=== PATIENT | female | born 1985 | race Asian ===

== ENCOUNTER → 2018-02-03 14:57 | Outpatient (CLI) | payer OTHER, SELFPAY ==
--- NOTE | 2018-02-03 | DI.US.S_ITS ---
PROCEDURE: US OB <= 14 WEEKS FETUS INDICATIONS: BLEEDING OUTSIDE/PRIOR DATING DATA: Last menstrual period (LMP): 12/08/2017. LMP-based estimated date of delivery (ROMERO): 09/14/2018. First dating scan (date and location): 02/03/2018. Estimated date of delivery (ROMERO) from first dating scan: 09/28/2018 by sac size. TECHNIQUE: Real-time scanning was performed of the fetus and maternal pelvic organs, with image documentation. Endovaginal scanning was also performed to better visualize the fetus and maternal ovaries. COMPARISON: None. FINDINGS: Embryo: Early intrauterine gestational sac contains a yolk sac and shows a sac size of 1.3 cm corresponding to estimated gestational age of 6 weeks one day. No pole or cardiac activity seen. Measurement variability in dating: +/- 4 weeks by LMP, +/- 7 days by mean sac diameter (use before 6 weeks gestation if crown-rump length not able to be measured), +/- 5 days by crown-rump length (up to 8 weeks 6 days gestation), +/- 7 days by crown-rump length (up to 13 weeks 6 days gestation). Maternal organs: Ovaries appear normal, corpus luteum cyst on the left.. Limited images through the kidneys demonstrate no hydronephrosis. IMPRESSION: Early intrauterine gestation at 6 weeks one day by sac size, no visible pole, possible blighted ovum but too early for confirmation. Deciduous reaction appears intact. Advise correlation with clinical status and repeat imaging in 1-2 weeks as indicated. Dictated by: Yobani Bautista M.D. on 02/03/2018 at 16:18 Approved by: Yobani Bautista M.D. on 02/03/2018 at 16:23
== END ==
PROVIDERS: Family Provider Family Medicine; Visit Provider Family Medicine
DX: O20.9 Hemorrhage in early pregnancy, unspecified (principal); Z3A.01 Less than 8 weeks gestation of pregnancy
CPT/HCPCS: 76801; 76817

== ENCOUNTER → 2018-02-13 07:32 | Outpatient (CLI) | payer OTHER, SELFPAY ==
--- NOTE | 2018-02-13 | DI.US.S_ITS ---
PROCEDURE: US OB <= 14 WEEKS FETUS INDICATIONS: DATES OUTSIDE/PRIOR DATING DATA: Last menstrual period (LMP): 12/08/17. LMP-based estimated date of delivery (ROMERO): 09/14/18 . First dating scan (date and location): 02/03/18. Estimated date of delivery (ROMERO) from first dating scan: 10/02/18. TECHNIQUE: Real-time scanning was performed of the fetus and maternal pelvic organs, with image documentation. Endovaginal scanning was also performed to better visualize the fetus and maternal ovaries. COMPARISON: [facility], , OB <= 14 WEEKS FETUS, 02/03/2018, 15:39. FINDINGS: Embryo: Morrill-rump length measures 1.0 cm corresponding to 7 weeks 0 days. ROMERO is 10/02/18. Measurement variability in dating: +/- 4 weeks by LMP, +/- 7 days by mean sac diameter (use before 6 weeks gestation if crown-rump length not able to be measured), +/- 5 days by crown-rump length (up to 8 weeks 6 days gestation), +/- 7 days by crown-rump length (up to 13 weeks 6 days gestation). Maternal organs: Ovaries within normal limits, with left corpus luteal cyst measuring roughly 1.6 cm.. Limited images through the kidneys demonstrate no hydronephrosis. IMPRESSION: 7 week 0 day single living IUP. . Dictated by: Aidan LANZA Interpreted: Jazmin Gonzalez MD on 02/13/2018 at 9:58 Approved by: Jazmin Gonzalez M.D. on 02/13/2018 at 12:00
== END ==
PROVIDERS: Family Provider Family Medicine; PCP Family Medicine; Visit Provider Family Medicine
DX: Z34.91 Encounter for supervision of normal pregnancy, unspecified, first trimester (principal); Z3A.01 Less than 8 weeks gestation of pregnancy
CPT/HCPCS: 76801; 76817

== ENCOUNTER → 2018-05-16 10:03 | Outpatient (CLI) | payer OTHER, SELFPAY ==
--- NOTE | 2018-05-16 | DI.US.S_ITS ---
PROCEDURE: US OB >= 14 WEEKS FETUS INDICATIONS: 20 WEEK SURVEY OUTSIDE/PRIOR DATING DATA: Last menstrual period (LMP): 12/08/17. LMP-based estimated date of delivery (ROMERO): 09/14/18. First dating scan (date and location): 02/03/18. Estimated date of delivery (ROMERO) from first dating scan: 10/02/18. TECHNIQUE: Real-time scanning was performed of the fetus, with image documentation and biometric measurements. Endovaginal scanning: No COMPARISON: [facility], OB <= 14 WEEKS FETUS, 02/13/2018, 7:44. FINDINGS: General: A single living intrauterine gestation is present. Presentation: Vertex. Placenta: Placental position is anterior, without previa. Amniotic fluid index: 16.2 cm, normal range is 5-24 cm. heart rate: 149 beats per minute. Maternal cervical canal: 3.2 cm long. Normal lower limit is 2.5 cm. biometrics: Biparietal diameter: 21 weeks Head circumference: 20 weeks 5 days Abdominal circumference: 21 weeks Femur length: 21 weeks Estimated gestational age from initial scan: 20 weeks 1 day Composite gestational age from present scan: 20 weeks Estimated weight and percentile: 388 g; 87 percentile Measurement variability for biometric dating: +/- 7 days from 14 weeks to 15 weeks 6 days gestation, +/- 10 days from 16 weeks to 21 weeks 6 days gestation, +/- 2 weeks from 22 weeks to 27 weeks 6 days gestation, +/- 3 weeks for 28 weeks gestation or later. weight reference: 4500 g or EFW >90/95% is considered macrosomia or large for gestational age. EFW <10% is small for gestational age. EFW 5% or less is considered intra-uterine growth restriction. Anatomic survey: Neuro: Ventricles are non-dilated at less than 10 mm. Cisterna magna is normal at 3-11 mm. Cerebellum is normal in size and morphology. Nuchal skin fold: Normal at less than 6 mm between 14-21 weeks gestational age. Face: Nose and lips, facial profile are normal. Spine: No evidence for spina bifida. Heart: 4-chambered heart is present, with normal ventricular outflow tracts. Diaphragm: Diaphragm is intact. Stomach: Left-sided stomach is present. Kidneys: No hydronephrosis. Normal is less than 5 mm in 2nd trimester, less than 7 mm in 3rd trimester. Cord: 3-vessel cord has orthotopic insertion. Bladder: Normal in size. Extremities: All 4 extremities identified. IMPRESSION: Single living IUP redemonstrated and interval growth is normal. Normal anatomic survey. Dictated by: Aidan Mathews [facility] Interpreted: Jazmin Gonzalez MD on 05/16/2018 at 11:52 Approved by: Jazmin Gonzalez M.D. on 05/16/2018 at 15:26
== END ==
PROVIDERS: Family Provider Family Medicine; PCP Family Medicine; Visit Provider Family Medicine
DX: Z36.89 Encounter for other specified antenatal screening (principal); Z3A.20 20 weeks gestation of pregnancy
CPT/HCPCS: 76811

== ENCOUNTER → 2018-07-22 12:09 | Outpatient (CLI) | payer OTHER, SELFPAY ==
--- NOTE | 2018-07-22 | DI.US.S_ITS ---
PROCEDURE: US OB LIMITED INDICATIONS: SGA OUTSIDE/PRIOR DATING DATA: Last menstrual period (LMP): 12/08/17. LMP-based estimated date of delivery (ROMERO): 09/14/18. First dating scan (date and location): 02/03/18. Estimated date of delivery (ROMERO) from first dating scan: 10/02/18. TECHNIQUE: Real-time scanning was performed of the fetus, with image documentation and biometric measurements. Endovaginal scanning: No COMPARISON: None. FINDINGS: General: A single living intrauterine gestation is present. Presentation: Vertex. Placenta: Placental position is anterior, without previa. Amniotic fluid index: 21.3 cm, normal range is 5-24 cm. heart rate: 155 beats per minute. Maternal cervical canal: 3.5 cm long. Normal lower limit is 2.5 cm. biometrics: Biparietal diameter: 32 weeks 1 day Head circumference: 31 weeks 6 days Abdominal circumference: 31 weeks 2 days Femur length: 31 weeks 1 day Estimated gestational age from initial scan: 29 weeks 5 days Composite gestational age from present scan: 31 weeks 4 days Estimated weight and percentile: 1758 g; 91st percentile Measurement variability for biometric dating: +/- 7 days from 14 weeks to 15 weeks 6 days gestation, +/- 10 days from 16 weeks to 21 weeks 6 days gestation, +/- 2 weeks from 22 weeks to 27 weeks 6 days gestation, +/- 3 weeks for 28 weeks gestation or later. weight reference: 4500 g or EFW >90/95% is considered macrosomia or large for gestational age. EFW <10% is small for gestational age. EFW 5% or less is considered intra-uterine growth restriction. Other: Not applicable. IMPRESSION: 1. Single living IUP redemonstrated and interval growth upper limits of normal. Dictated by: Aidan Mathews [facility] Interpreted: Dagoberto Lopez MD on 07/22/2018 at 15:03 Approved by: Dagoberto Lopez M.D. on 07/22/2018 at 17:09
== END ==
PROVIDERS: PCP Family Medicine; Visit Provider Family Medicine
DX: O36.5930 Maternal care for other known or suspected poor fetal growth, third trimester, not applicable or unspecified (principal); Z3A.31 31 weeks gestation of pregnancy
CPT/HCPCS: 76815

== ENCOUNTER 2018-08-08 15:19 | Outpatient (CLI) | payer OTHER, SELFPAY | END 2018-08-08 16:49 | disposition home or self-care (01) | LOC: LABOR 16:49 → OB 08-11 16:32 | PROVIDERS: PCP Family Medicine; Visit Provider Family Medicine | DX: Z34.03 Encounter for supervision of normal first pregnancy, third trimester (principal); Z3A.32 32 weeks gestation of pregnancy | CPT/HCPCS: 59025; G0378; G0379 ==

== ENCOUNTER 2018-08-25 14:53 | Outpatient (CLI) | payer OTHER, SELFPAY | END 2018-08-25 15:38 | disposition home or self-care (01) | LOC: LABOR 15:48 → OB 08-27 12:54 | PROVIDERS: PCP Family Medicine; Visit Provider Family Medicine | DX: O36.8130 Decreased fetal movements, third trimester, not applicable or unspecified (principal); Z3A.34 34 weeks gestation of pregnancy | CPT/HCPCS: 59025; G0378; G0379 ==

== ENCOUNTER → 2018-09-02 16:26 | Outpatient (REF) | payer OTHER, SELFPAY | LOC: LAB 16:26 | PROVIDERS: PCP Family Medicine; Visit Provider Family Medicine | DX: Z34.03 Encounter for supervision of normal first pregnancy, third trimester (principal) | CPT/HCPCS: 87081 ==

== ENCOUNTER → 2018-09-10 12:18 | Outpatient (CLI) | payer OTHER, SELFPAY ==
--- NOTE | 2018-09-10 | DI.US.S_ITS ---
PROCEDURE: US OB LIMITED INDICATIONS: SIZE GREATER THAN DATES OUTSIDE/PRIOR DATING DATA: Last menstrual period (LMP): 12/08/17. LMP-based estimated date of delivery (ROMERO): 09/14/18. First dating scan (date and location): 02/03/18, [facility]. Estimated date of delivery (ROMERO) from first dating scan: 10/02/18. TECHNIQUE: Real-time scanning was performed of the fetus, with image documentation and biometric measurements. Endovaginal scanning: Not performed COMPARISON: Merged With [facility], , US OB LIMITED, 07/22/2018, 12:31. FINDINGS: General: A single living intrauterine gestation is present. Presentation: Vertex. Placenta: Placental position is anterior, without previa. Amniotic fluid index: 18.7 cm, normal range is 5-24 cm. heart rate: 120 beats per minute. Maternal cervical canal: Not visualized biometrics: Biparietal diameter: 9.4 cm, 38 weeks, 3 days Head circumference: 33.3 cm, 38 weeks, zero days Abdominal circumference: 34.6 cm, 38 weeks, 3 days Femur length: 7.1 cm, 36 weeks, 2 days Estimated gestational age from initial scan: 36 weeks, 6 days Composite gestational age from present scan: 37 weeks, 6 days Estimated weight and percentile: 3343 g, 82nd percentile Measurement variability for biometric dating: +/- 7 days from 14 weeks to 15 weeks 6 days gestation, +/- 10 days from 16 weeks to 21 weeks 6 days gestation, +/- 2 weeks from 22 weeks to 27 weeks 6 days gestation, +/- 3 weeks for 28 weeks gestation or later. weight reference: 4500 g or EFW >90/95% is considered macrosomia or large for gestational age. EFW <10% is small for gestational age. EFW 5% or less is considered intra-uterine growth restriction. Other: Not applicable. IMPRESSION: 1. Single live intrauterine gestation with a composite gestational age of 37 weeks, 6 days which is concordant with the dates by initial scan. 2. 82nd percentile for estimated weight. Dictated by: Megha Berkowitz M.D. on 09/10/2018 at 13:39 Approved by: Megha Berkowitz M.D. on 09/10/2018 at 13:41
== END ==
PROVIDERS: PCP Family Medicine; Visit Provider Family Medicine
DX: O36.63X0 Maternal care for excessive fetal growth, third trimester, not applicable or unspecified (principal); Z3A.37 37 weeks gestation of pregnancy
CPT/HCPCS: 76815

== ENCOUNTER 2018-09-17 21:42 | Outpatient (CLI) | payer OTHER, SELFPAY | END 2018-09-17 23:00 | disposition home or self-care (01) | LOC: LABOR 21:51 → OB 09-18 13:58 | PROVIDERS: PCP Family Medicine; Visit Provider Family Medicine | DX: O42.92 Full-term premature rupture of membranes, unspecified as to length of time between rupture and onset of labor (principal); Z3A.37 37 weeks gestation of pregnancy | CPT/HCPCS: 59025; G0378; G0379 ==

== ENCOUNTER 2018-09-18 01:37 | Inpatient (IN) | payer OTHER, SELFPAY ==
[2018-09-18 02:59] VITALS: BP 103/62
[2018-09-18 05:43] LABS: Add Manual Diff / Slide Review NO; Basophils Absolute Auto 0 /uL (0-100); Basophils Percent Auto 0.3 % (0-2); Eosinophils Absolute Auto 0 /uL (0-450); Eosinophils Percent Auto 0.3 % (2-4); Hematocrit 39.8 % (36-46); Hemoglobin 13.2 g/dL (12.0-16.0); Lymphocytes Absolute Auto 1100 /uL (1100-4500); Lymphocytes Percent Auto 9.1 % (25-40); Mean Corpuscular HGB Conc 33.2 % (30-36); Mean Corpuscular Hemoglobin 30.5 PG (26-34); Mean Corpuscular Volume 91.9 fL (80-100); Monocytes Absolute Auto 800 /uL (0-900); Monocytes Percent Auto 6.4 % (3-14); Neutrophils Absolute Auto 10200 /uL (1500-7000); Neutrophils Percent Auto 83.9 % (50-75); Platelet Count 220 X10^3/uL (150-400); Red Blood Cell Count 4.33 X10^6/uL (4.0-5.2); Red Cell Distribution Width 14.4 % (11.6-14.8); White Blood Cell Count 12.2 X10^3/uL (4.5-11.0)
[2018-09-18] MEDS: LACTATED RINGERS 1,000 ML 100 ML IV ×3 (08:37→22:55)
[2018-09-18] MEDS: OXYTOCIN PREMIX 30 UNIT/500 ML PLAST..BAG IV (09:25)
--- NOTE | 2018-09-18 11:05 | PM.OBHP.1 ---
OB HPI Date/Time Date of admission: 09/18/18 Date Patient Seen: 09/18/18 Time Patient Seen: 11:05 History of Present Condition Chief complaint: Labor/delivery : 1 Para: 0 Estimated Date of Delivery: 10/02/18 Estimated Gestational Age (weeks): Thir38 Narrative: Sindhu Olvia is a 33 year old female who presents with history of ruptured 830 last night. Clear fluid. Patient had no significant contractions yesterday. No other changes. Patient was evaluated last night heart monitor was reactive she was grossly ruptured but not rodney was sent home she came back 1:00 a.m. this morning with active contractions. Patient with increasing pain 6:00 a.m. this morning and epidural was placed. heart monitor has been reactive. Pitocin started this morning with still not quite adequate contractions currently at 3 milliunits History of Present care: good care Dating criteria: LMP confirmed by 1st trimester US Ultrasounds: normal mid trimester US Obstetrical complications: none Medical complications: none Narrative: Patient with bleeding Alvarez. Did have some labor possibly but no cervical change was placed on Procardia to 36 weeks for about 4 weeks had some this may be spotting at 32 weeks but no other changes. She has otherwise been feeling well. Patient had some mild elevation in her blood sugar 1 hr glucose was 115. Otherwise no changes. Apparently Dr. Schmitt has been following this. Preadmission Labs Blood type: AB (+) positive -: Antibody screen: negative, GBS status: negative, HBsAG: negative, HIV: negative, HSV 1: negative, HSV 2: negative and RPR/VDLR: negative -: Chlamydia screen: not detected and Gonorrhea screen: not detected -: Rubella: immune HCT: 36 HCAB: negative PAP: Normal Cell-free DNA: Normal 1 hr GTT: 115 Fasting blood glucose: 106 Prior (ies) History: None Evaluation Evaluation Laboratory results: Laboratory Tests 09/18/18 09/18/18 04:40 04:40 WBC 12.2 H RBC 4.33 Hgb 13.2 Hct 39.8 MCV 91.9 MCH 30.5 MCHC 33.2 RDW 14.4 Plt Count 220 Neut % (Auto) 83.9 H Lymph % (Auto) 9.1 L [place] % (Auto) 6.4 Eos % (Auto) 0.3 L Baso % (Auto) 0.3 Neut # (Auto) 21023 H Lymph # (Auto) 1100 [place] # (Auto) 800 Eos # (Auto) 0 Baso # (Auto) 0 Blood Type AB Positive Antibody Screen Negative [facility] Social History Smoking Status: Never smoker Social History Smoking Status: Never smoker Meds Home Medications Medication Instructions Recorded Confirmed Type sertraline 50 mg PO QDAY #0 01/05/12 09/18/18 History albuterol sulfate [Proventil HFA] 1 puff INH PRN PRN #0 11/20/16 09/18/18 History loratadine 10 mg PO DAILY 09/18/18 09/18/18 History Allergies Allergy/AdvReac Type Severity Reaction Status Date / Time amoxicillin [AMOXICILLIN] Allergy Unknown Hives Verified 09/18/18 03:13 Penicillins [PENICILLINS] Allergy Unknown Hives Verified 09/18/18 03:13 azithromycin Allergy Hives Verified 09/18/18 03:13 clindamycin Allergy Hives Verified 09/18/18 03:14 Sulfa (Sulfonamide Allergy Hives Verified 09/18/18 03:13 Antibiotics) Review of Systems Review of Systems All systems reviewed & are unremarkable except as noted in HPI and below Exam Narrative Exam Narrative: Alert female lying in bed comfortable in no acute distress. Lungs are clear. Heart regular rate and rhythm. Abdomen is soft positive bowel sounds nontender. Gravid. Vertex. Estimated weight 7-1/2 to 8 lb. Extremities without cyanosis clubbing edema. Normal neurologic exam sterile vaginal exam shows 4-5. Vertex. Ruptured. 90%. Minus one. Objective Labs Result Diagrams: 09/18/18 04:40 Labs: Laboratory Results - last 24 hr 09/18/18 09/18/18 04:40 04:40 WBC 12.2 H RBC 4.33 Hgb 13.2 Hct 39.8 MCV 91.9 MCH 30.5 MCHC 33.2 RDW 14.4 Plt Count 220 Neut % (Auto) 83.9 H Lymph % (Auto) 9.1 L [place] % (Auto) 6.4 Eos % (Auto) 0.3 L Baso % (Auto) 0.3 Neut # (Auto) 20046 H Lymph # (Auto) 1100 [place] # (Auto) 800 Eos # (Auto) 0 Baso # (Auto) 0 Blood Type AB Positive Antibody Screen Negative Assessment and Plan Assessment and Plan Assessment and Plan narrative: Thirty-eight week intrauterine . With rupture of membranes now going on 14 hr. Making cervical change. Being augmented with Pitocin. Discussed with pharmacist. May try Rocephin if needed will probably hold off as long as she is stable without fever or other changes. The patient with history of asthma will have to be careful and watch closely. Sugar is 106 which is probably okay but will follow. No other changes. Prepare for vaginal delivery. Discussed labor plan with patient.
--- NOTE | 2018-09-18 11:16 | P.HPOB_ITS ---
OB HPI Date/Time Date of admission: 09/18/18 Date Patient Seen: 09/18/18 Time Patient Seen: 11:05 History of Present Condition Chief complaint: Labor/delivery : 1 Para: 0 Estimated Date of Delivery: 10/02/18 Estimated Gestational Age (weeks): Thir38 Narrative: Sindhu Oliva is a 33 year old female who presents with history of ruptured 830 last night. Clear fluid. Patient had no significant contractions yesterday. No other changes. Patient was evaluated last night heart monitor was reactive she was grossly ruptured but not rodney was sent home she came back 1:00 a.m. this morning with active contractions. Patient with increasing pain 6:00 a.m. this morning and epidural was placed. heart monitor has been reactive. Pitocin started this morning with still not quite adequate contractions currently at 3 milliunits History of Present care: good care Dating criteria: LMP confirmed by 1st trimester US Ultrasounds: normal mid trimester US Obstetrical complications: none Medical complications: none Narrative: Patient with bleeding Alvarez. Did have some labor possibly but no cervical change was placed on Procardia to 36 weeks for about 4 weeks had some this may be spotting at 32 weeks but no other changes. She has otherwise been feeling well. Patient had some mild elevation in her blood sugar 1 hr glucose was 115. Otherwise no changes. Apparently Dr. Schmitt has been following this. Preadmission Labs Blood type: AB (+) positive -: Antibody screen: negative, GBS status: negative, HBsAG: negative, HIV: negative, HSV 1: negative, HSV 2: negative and RPR/VDLR: negative -: Chlamydia screen: not detected and Gonorrhea screen: not detected -: Rubella: immune HCT: 36 HCAB: negative PAP: Normal Cell-free DNA: Normal 1 hr GTT: 115 Fasting blood glucose: 106 Prior (ies) History: None Evaluation Evaluation Laboratory results: Laboratory Tests 09/18/18 09/18/18 04:40 04:40 WBC 12.2 H RBC 4.33 Hgb 13.2 Hct 39.8 MCV 91.9 MCH 30.5 MCHC 33.2 RDW 14.4 Plt Count 220 Neut % (Auto) 83.9 H Lymph % (Auto) 9.1 L [place] % (Auto) 6.4 Eos % (Auto) 0.3 L Baso % (Auto) 0.3 Neut # (Auto) 81672 H Lymph # (Auto) 1100 [place] # (Auto) 800 Eos # (Auto) 0 Baso # (Auto) 0 Blood Type AB Positive Antibody Screen Negative [facility] Social History Smoking Status: Never smoker Social History Smoking Status: Never smoker Meds Home Medications Medication Instructions Recorded Confirmed Type sertraline 50 mg PO QDAY #0 01/05/12 09/18/18 History albuterol sulfate [Proventil HFA] 1 puff INH PRN PRN #0 11/20/16 09/18/18 History loratadine 10 mg PO DAILY 09/18/18 09/18/18 History Allergies Allergy/AdvReac Type Severity Reaction Status Date / Time amoxicillin [AMOXICILLIN] Allergy Unknown Hives Verified 09/18/18 03:13 Penicillins [PENICILLINS] Allergy Unknown Hives Verified 09/18/18 03:13 azithromycin Allergy Hives Verified 09/18/18 03:13 clindamycin Allergy Hives Verified 09/18/18 03:14 Sulfa (Sulfonamide Allergy Hives Verified 09/18/18 03:13 Antibiotics) Review of Systems Review of Systems All systems reviewed & are unremarkable except as noted in HPI and below Exam Narrative Exam Narrative: Alert female lying in bed comfortable in no acute distress. Lungs are clear. Heart regular rate and rhythm. Abdomen is soft positive bowel sounds nontender. Gravid. Vertex. Estimated weight 7-1/2 to 8 lb. Extremities without cyanosis clubbing edema. Normal neurologic exam sterile vaginal exam shows 4-5. Vertex. Ruptured. 90%. Minus one. Objective Labs Result Diagrams: 09/18/18 04:40 Labs: Laboratory Results - last 24 hr 09/18/18 09/18/18 04:40 04:40 WBC 12.2 H RBC 4.33 Hgb 13.2 Hct 39.8 MCV 91.9 MCH 30.5 MCHC 33.2 RDW 14.4 Plt Count 220 Neut % (Auto) 83.9 H Lymph % (Auto) 9.1 L [place] % (Auto) 6.4 Eos % (Auto) 0.3 L Baso % (Auto) 0.3 Neut # (Auto) 29016 H Lymph # (Auto) 1100 [place] # (Auto) 800 Eos # (Auto) 0 Baso # (Auto) 0 Blood Type AB Positive Antibody Screen Negative Assessment and Plan Assessment and Plan Assessment and Plan narrative: Thirty-eight week intrauterine . With rupture of membranes now going on 14 hr. Making cervical change. Being augmented with Pitocin. Discussed with pharmacist. May try Rocephin if needed will probably hold off as long as she is stable without fever or other changes. The patient with history of asthma will have to be careful and watch closely. Sugar is 106 which is probably okay but will follow. No other changes. Prepare for vaginal delivery. Discussed labor plan with patient.
--- NOTE | 2018-09-18 13:04 | PM.OBPNLAB ---
Date/Time Date Patient Seen: 09/18/18 Time Patient Seen: 13:04 Pain Control Pain control: tolerating well and epidural Pelvic Exam Dilation (cm): 6 Effacement (%): 90 station: -1 Amniotic membrane status: Ruptured Contractions Contractions on admission: irregular Monitor mode: External Pitocin rate (mU/min): 10 Contraction frequency (min): 4 Contraction pattern: Irregular Contraction phase: Resting Contraction intensity: Moderate Status status: Category l Assessment and Plan Comments: Doing well. Very comfortable on her epidural. No other changes. Cervical changes doing well. Ultrasound shows back slightly left side but away. No other changes. We discussed that were having some trouble monitoring baby. Trouble with contractions we may need an internal monitor. We discussed this. Risk is infection with her history of antibiotic allergies makes it more difficult. No other changes. We are going to give it to more hours. And follow. Re-evaluate then
--- NOTE | 2018-09-18 16:24 | P.PNOB_ITS ---
Date/Time Date Patient Seen: 09/18/18 Time Patient Seen: 16:22 Pain Control Pain control: tolerating well and epidural Pelvic Exam Dilation (cm): 6 Effacement (%): 90 station: 0 Amniotic membrane status: Ruptured Contractions Contractions on admission: irregular Monitor mode: Internal Contraction frequency (min): 10 Contraction pattern: Irregular Contraction phase: Resting Contraction intensity: Moderate Status status: Category l Assessment and Plan Assessment: active labor Comments: Overall doing well slight change PB is definitely descended into the pelvis contraction pattern is hard to read internal was placed and internal he art monitor was placed will see how things go. Hopefully we can adjust the Pitocin a more aggressive but will see how things play out recheck 2 hr if no change will consider operative delivery but overall will prepare for
--- NOTE | 2018-09-18 18:28 | PM.OBPNLAB ---
Date/Time Date Patient Seen: 09/18/18 Time Patient Seen: 18:29 Pain Control Pain control: tolerating well and epidural Pelvic Exam Dilation (cm): 7 Effacement (%): 90 station: +1 Amniotic membrane status: Ruptured Contractions Contractions on admission: regular Monitor mode: Internal Pitocin rate (mU/min): 22 Contraction frequency (min): 10 Contraction pattern: Irregular Contraction phase: Resting Contraction intensity: Moderate Status status: Category l Assessment and Plan Assessment: active labor Comments: doing well. slow but consistent change. will continue pit. further down in pelvis . will recheck in two hours. sugar stable will stop glucose testing. baby looks good.
--- NOTE | 2018-09-18 20:52 | PM.OBPNLAB ---
Date/Time Date Patient Seen: 09/18/18 Time Patient Seen: 20:52 Pain Control Pain control: tolerating well and epidural Pelvic Exam Dilation (cm): 9 Effacement (%): 100 station: +1 Amniotic membrane status: Ruptured Contractions Contractions on admission: regular Monitor mode: Internal Contraction frequency (min): 10 Contraction pattern: Irregular Contraction phase: Resting Contraction intensity: Moderate Status status: Category l Assessment and Plan Assessment: active labor Comments: Actually doing quite well. Baby's come down a little bit further. heart monitor is excellent. No evidence of fever. Due to the history of pretty significant allergies to previous antibiotics going to hold antibiotics. Rocephin would be what we would use if we choose it. Discussed with patient. Pitocin at this point seems to be doing well. Still do not have much more than 40 mm of mercury of contractions but I feel like we are making progress. Child seems to be pretty far down. See how things go. Continue Pitocin. Labor down some. Deliver when ready. Hopefully in the next 1-2 hours. Discussed with her and her . Will follow.
--- NOTE | 2018-09-19 00:26 | PM.OBPNLAB ---
Date/Time Date Patient Seen: 09/19/18 Time Patient Seen: 00:27 Pain Control Pain control: tolerating well and epidural Pelvic Exam Dilation (cm): 10 Effacement (%): 100 station: +1 Amniotic membrane status: Ruptured Comments: Increased pressure with contractions. Now with fever. Contractions Monitor mode: Internal Contraction frequency (min): 10 Contraction pattern: Irregular Contraction phase: Resting Contraction intensity: Moderate Status status: Category ll Monitor Accelerations: Absent Monitor Decelerations: Absent Monitor Variability: Absent Assessment and Plan Assessment: active labor Comments: Patient now with fever. Complete. Otherwise doing well. Will begin pushing after antibiotics cefotetan given. Re-evaluate after that. Hopefully proceed to vaginal delivery
--- NOTE | 2018-09-19 03:13 | PM.OBPNLAB ---
Date/Time Date Patient Seen: 09/19/18 Time Patient Seen: 03:13 Pain Control Pain control: tolerating well and epidural Pelvic Exam Dilation (cm): 10 Effacement (%): 100 station: +1 Amniotic membrane status: Ruptured Contractions Monitor mode: Internal Pitocin rate (mU/min): 0 Contraction frequency (min): 2 Contraction pattern: Irregular Contraction phase: Resting Contraction intensity: Moderate Status status: Category ll Assessment and Plan Comments: Patient has been pushing more than 2 hr heart rate is up in the 180s. Really no significant change. I believe she is still too high for forceps will proceed to operative delivery reasoning discussed with patient and . Questions answered. Consent signed.
[2018-09-19] MEDS: CEFOTETAN 2 GM/50 ML PIGGYBACK IV ×2 (04:14→15:38)
--- NOTE | 2018-09-19 04:31 | SUR.OPER ---
Supine on Padded OR bed, head on pillow, safety belt at thigh, arms secured on padded arm boards at <90 degrees abduction. Bump under right buttock. Legs uncrossed with pillow under knees, gel pad to heels, tape over blanket to lower legs.
[2018-09-19] MEDS: ACETAMINOPHEN IV 1,000 MG/100 ML VIAL 400 MG IV (04:48)
[2018-09-19 05:25] VITALS: BP 101/50; PULSE 111; RESP 14; TEMP 37.2; O2SAT 94
[2018-09-19 05:30] VITALS: BP 108/71; PULSE 110; RESP 20; TEMP 37.2; O2SAT 95
[2018-09-19 05:35] VITALS: BP 100/56; PULSE 107; RESP 19; TEMP 37.2; O2SAT 93
[2018-09-19] MEDS: HYDROMORPHONE 2 MG INJ 0.5 MG IV ×2 (05:35→05:40)
[2018-09-19 05:45] VITALS: BP 95/47; PULSE 106; RESP 15; TEMP 36.9; O2SAT 92
[2018-09-19] MEDS: METHYLERGONOVINE 0.2 MG/ML VIAL IM (05:50)
[2018-09-19 05:55] VITALS: BP 100/58; PULSE 103; RESP 15; TEMP 36.6; O2SAT 95
[2018-09-19] MEDS: LACTATED RINGERS 1,000 ML 100 ML IV (05:55)
--- NOTE | 2018-09-19 05:55 | P.OP_ITS ---
Operative Date/Time/Diagnoses Date of procedure: 09/19/18 Time of procedure: 05:51 Pre-op diagnosis: Thirty-eight week intrauterine ruptured 32 hr, fever, 2nd stage arrest Post-op diagnosis: same Procedure & Clinicians Procedure: Primary low transverse section Same procedure as scheduled: Yes Indications: Thirty-eight week intrauterine presented with rupture 32 hr prior to delivery began having fevers 4 hr prior antibiotics were given although not a good until 4 hr after 24 hr due to the patient's history of pretty significant allergies to most medication antibiotic stone. Patient otherwise did well but did not progress after pushing for 2 and 0.5 hr. Surgeon: Av Salcedo [employer] Specialist: Alayna Anna Anesthesia Type: Epidural Operative Notes Findings: Viable female Apgars 7 and 8, normal pelvic organs. Closure Type: primary Specimen(s): none sent Applied: catheter Estimated Blood Loss (mL): 500 Blood products transfused: none Procedure in detail: Patient was taken to operative theater and epidural was dosed consistently no other significant change. After consent was signed. Prepped and draped in the usual manner.Scoapes procedure was followed. Difficulty with anesthesia. Took a while to get control did not get absolute control nitrous oxide was placed. Pfannenstiel incision was then incised to fascia. With sharp dissection blunt dissection was used on the subcutaneous tissue. Midline fascia was then incised and then elevated and with curved scissors was carried out to the lateral sides bilaterally co cares over then used to grasp the superior aspect of the fascia and removed from the muscle layer. Bluntly except for some midline. This was repeated inferiorly. We then entered the peritoneum which was exposed under direct visualization and then bluntly extended incisio. Bladder blade was then placed bladder flap was then identified and using curved scissors incised and bluntly developed bladder blade was then placed into the bladder flap. A low transverse incision was then scored over the uterus lower uterine segment and N2 was in the cyst midline sharply dissected until clear fluid was noted this was then extended bilaterally bluntly head was then grasped and pulled out of the pelvis and delivered without complications child was crying Keerthi at that time. Cord gases were obtained. Cord bloods were obtained. Placenta was then delivered spontaneous intact after child was handed off to waiting pediatric nurse. Moderate amount of bleeding at this time. Trauma went lap sponge use sweats inside of the uterine contents the bladder blade was then placed the corners incision on the grass along with inferior aspect. Was closed with running 2 0 chromic locked. Second suture line of running 200 chromic non lock. Bleeding was noted on the right-sided incision and a 2050 of 8 suture was then used without great results and the corner of the uterine incision was then closed with running 2 0 Vicryl noon on locked fashion to about a quarter of the uterine incision imbricated with excellent results. Irrigation was done and removed. Uterine incision was found to be clinically dry. Ovaries and tubes appeared normal. Bladder flap was closed with running 2 0 Vicryl. Peritoneum was closed with running 3 0 Vicryl. Fascia was closed with running 2 0 Vicryl. Irrigation was done subcutaneous tissue 330 Vicryl interrupted sutures were used to approximate the wound wound was closed with 4 0 running subcuticular suture Steri-Strips and dressing was applied. Complications: none Condition: stable Disposition: Acute Care Plan for aftercare: Will watch closely. If bleeding increases will use he Cytotec. Otherwise routine care
[2018-09-19] MEDS: miSOPROStol 200 MCG TABLET 800 MCG PR (06:00)
[2018-09-19 06:10] VITALS: BP 102/60; PULSE 105; RESP 15; TEMP 36.6; O2SAT 93
[2018-09-19] MEDS: OXYTOCIN IV (06:10)
[2018-09-19] MEDS: DEXTROSE 5% IV (06:10)
[2018-09-19] MEDS: LACTATED RINGERS IV (06:10)
[2018-09-19] MEDS: DEXTROSE 5%-LACTATED RINGERS 1,000 ML 125 ML IV ×2 (08:19→15:43)
[2018-09-19] MEDS: PRENATAL VIT,CALC/IRON/FOLIC 1 TABLET 1 TAB PO (09:17)
[2018-09-19] MEDS: SERTRALINE 50 MG TABLET PO (09:17)
[2018-09-19] MEDS: DOCUSATE 250 MG CAPSULE PO (09:17)
[2018-09-19 10:20] LABS: Add Manual Diff / Slide Review YES; Hematocrit 35.2 % (36-46); Hemoglobin 11.6 g/dL (12.0-16.0); Mean Corpuscular Hemoglobin 30.4 PG (26-34); Mean Corpuscular Volume 92.1 fL (80-100); Platelet Count 185 X10^3/uL (150-400); Red Blood Cell Count 3.83 X10^6/uL (4.0-5.2); Red Cell Distribution Width 14.1 % (11.6-14.8); White Blood Cell Count 18.3 X10^3/uL (4.5-11.0)
[2018-09-19 10:44] LABS: Neutrophils Absolute Manual 15921 /uL (3000-5900); Total Cells Counted 100
[2018-09-19 10:45] LABS: Morphology Comment Normal Morphology
--- NOTE | 2018-09-19 11:03 | P.PN_ITS ---
Subjective Date Patient Seen: 09/19/18 Time Patient Seen: 10:59 Interval history: Patient actually feeling quite well. Minimal pain. Bleeding is improved. Having no chest pain or shortness of breath but oxygen status when she was sleeping was 88. No other significant new change. No leg pain. Exam Vital Signs (past 8 hours): - 09/19/18 05:25 09/19/18 05:30 09/19/18 05:35 Temperature 98.9 F 98.9 F 98.9 F Pulse Rate 111 H 110 H 107 H Respiratory Rate 14 20 19 Blood Pressure 101/50 L 108/71 100/56 L Pulse Oximetry 94 95 93 09/19/18 05:45 09/19/18 05:55 09/19/18 06:10 Temperature 98.5 F 98 F 98 F Pulse Rate 106 H 103 H 105 H Respiratory Rate 15 15 15 Blood Pressure 95/47 L 100/58 L 102/60 Pulse Oximetry 92 95 93 Oxygen Delivery Method Room Air Narrative Exam Narrative: Alert female in no acute distress. Fatigued in appearance. Skin without rash. Normal turgor. Lungs are clear. Heart regular rate and rhythm. Incision is clean and dry. Uterus is firm. Umbilicus. Extremities without cyanosis clubbing edema. No calf tenderness. No thigh tenderness. Objective Labs Result Diagrams: 09/19/18 10:15 Labs: Laboratory Results - last 24 hr 09/19/18 10:15 WBC 18.3 H RBC 3.83 L Hgb 11.6 L Hct 35.2 L MCV 92.1 MCH 30.4 MCHC 33.0 RDW 14.1 Plt Count 185 Neut % (Auto) Not Reportable Lymph % (Auto) Not Reportable [place] % (Auto) Not Reportable Eos % (Auto) Not Reportable Baso % (Auto) Not Reportable Lymph # (Auto) Not Reportable [place] # (Auto) Not Reportable Baso # (Auto) Not Reportable Total Counted 100 Seg Neutrophils % 81.0 H Band Neutrophils % 6.0 Lymphocytes % (Manual) 8.0 L Monocytes % (Manual) 5.0 Neutrophils # (Manual) 31968 H Differential Comment Normal morphology RBC Morphology Not Reportable Assessment & Plan Assessment & Plan narrative: Status post earlier this morning. Overall doing surprisingly well hers urine still has quite a bit of blood in it which will have to watch and see. Was bloody prior to going to last night. Need to see this clear. Pulse ox seems stable at this time. But if any change will need chest x-ray and possible CT scan. No evidence of DVT on exam but will follow closely. Discussed with patient and . Overall doing extremely well for which she went through yesterday. Will follow from there. No evidence of infection. White count is elevated but status post delivery will recheck tomorrow.
[2018-09-19] MEDS: IBUPROFEN 600 MG TABLET PO ×2 (14:55→21:02)
[2018-09-19] MEDS: OXYCODONE/ACETAMINOPHEN 5/325 TABLET 1 TAB PO (16:39)
[2018-09-19] MEDS: LACTATED RINGERS 1,000 ML 1000 ML IV (17:10)
[2018-09-19] MEDS: OXYCODONE/ACETAMINOPHEN 5/325 TABLET 2 TAB PO (18:35)
--- NOTE | 2018-09-19 19:40 | P.PNOB_ITS ---
Subjective - OB Patient comments: incisional pain and tolerating diet Narrative: Overall feeling well slight increase in pain. Bleeding has been stable. Blood pressure has been on decreased with a slight increase in pulse. No other significant new changes or complaints no shortness of breath no chest pain no further decrease in pulse ox. Date Patient Seen: 09/19/18 Time Patient Seen: 19:39 Exam Vital Signs (past 8 hours): Oxygen Delivery Method Room Air Narrative Exam Narrative: Alert female smiling interactive in no acute distress. Lungs are clear. Heart regular rate and rhythm. Abdomen is uterus is firm at umbilicus moderately tender incision is clean and dry. Extremities without cyanosis clubbing edema nontender Objective Labs Result Diagrams: 09/20/18 07:03 Labs: Laboratory Results - last 24 hr 09/19/18 10:15 WBC 18.3 H RBC 3.83 L Hgb 11.6 L Hct 35.2 L MCV 92.1 MCH 30.4 MCHC 33.0 RDW 14.1 Plt Count 185 Neut % (Auto) Not Reportable Lymph % (Auto) Not Reportable [place] % (Auto) Not Reportable Eos % (Auto) Not Reportable Baso % (Auto) Not Reportable Lymph # (Auto) Not Reportable [place] # (Auto) Not Reportable Baso # (Auto) Not Reportable Total Counted 100 Seg Neutrophils % 81.0 H Band Neutrophils % 6.0 Lymphocytes % (Manual) 8.0 L Monocytes % (Manual) 5.0 Neutrophils # (Manual) 49417 H Differential Comment Normal morphology RBC Morphology Not Reportable Assessment & Plan Time Spent With Patient Total time spent is greater than 50% in coordination of care (as documented) at patient's floor/unit and/or counseling patient: Postop day today with decreased blood pressure although clinically looking very good. No evidence of recurrent hypoxia. Will check H&H to make sure stable but certainly was good this morning. Will give IV bolus. Urine is cleared. Will follow re-evaluate in a.m. unless change. 15-24 minutes
[2018-09-19 19:58] LABS: Hematocrit 31.4 % (36-46); Hemoglobin 10.4 g/dL (12.0-16.0)
[2018-09-20] MEDS: OXYCODONE/ACETAMINOPHEN 5/325 TABLET 2 TAB PO ×5 (02:47→23:02)
[2018-09-20] MEDS: IBUPROFEN 600 MG TABLET PO ×4 (02:47→20:54)
[2018-09-20 07:22] LABS: Add Manual Diff / Slide Review NO; Basophils Absolute Auto 100 /uL (0-100); Basophils Percent Auto 0.7 % (0-2); Eosinophils Absolute Auto 100 /uL (0-450); Eosinophils Percent Auto 0.8 % (2-4); Hematocrit 32.1 % (36-46); Hemoglobin 10.6 g/dL (12.0-16.0); Lymphocytes Absolute Auto 1200 /uL (1100-4500); Lymphocytes Percent Auto 7.1 % (25-40); Mean Corpuscular HGB Conc 33.1 % (30-36); Mean Corpuscular Hemoglobin 30.5 PG (26-34); Mean Corpuscular Volume 92.3 fL (80-100); Monocytes Absolute Auto 900 /uL (0-900); Monocytes Percent Auto 5.5 % (3-14); Neutrophils Absolute Auto 14300 /uL (1500-7000); Neutrophils Percent Auto 85.9 % (50-75); Platelet Count 182 X10^3/uL (150-400); Red Blood Cell Count 3.48 X10^6/uL (4.0-5.2); Red Cell Distribution Width 14.2 % (11.6-14.8); White Blood Cell Count 16.7 X10^3/uL (4.5-11.0)
[2018-09-20] MEDS: LANOLIN OINT 7 GM 1 APPLIC TOP (08:31)
[2018-09-20] MEDS: PRENATAL VIT,CALC/IRON/FOLIC 1 TABLET 1 TAB PO (08:32)
[2018-09-20] MEDS: DOCUSATE 250 MG CAPSULE PO (08:32)
--- NOTE | 2018-09-20 09:16 | PM.OBPN.1 ---
Subjective - OB Patient comments: pain well controlled baby status: nursing well feeding status: exclusively breast feeding Narrative: Overall doing well. Not dizzy. Up ambulating. No dizziness no lightheadedness. No shortness of breath. No chest pain. Bleeding is minimal. Date Patient Seen: 09/20/18 Time Patient Seen: 09:17 Exam Vital Signs (past 8 hours): Oxygen Delivery Method Room Air Narrative Exam Narrative: Alert female smiling interactive in no acute distress. Mucous membranes moist. Lungs are clear. Heart regular rate and rhythm. Abdomen is soft positive bowel sounds UE wrist is firm nontender incision is clean and dry. Extremities without cyanosis clubbing no edema no calf tenderness Objective Labs Result Diagrams: 09/20/18 07:03 Labs: Laboratory Results - last 24 hr 09/19/18 09/19/18 09/20/18 10:15 19:35 07:03 WBC 18.3 H 16.7 H RBC 3.83 L 3.48 L Hgb 11.6 L 10.4 L 10.6 L Hct 35.2 L 31.4 L 32.1 L MCV 92.1 92.3 MCH 30.4 30.5 MCHC 33.0 33.1 RDW 14.1 14.2 Plt Count 185 182 Neut % (Auto) Not Reportable 85.9 H Lymph % (Auto) Not Reportable 7.1 L [place] % (Auto) Not Reportable 5.5 Eos % (Auto) Not Reportable 0.8 L Baso % (Auto) Not Reportable 0.7 Neut # (Auto) 49092 H Lymph # (Auto) Not Reportable 1200 [place] # (Auto) Not Reportable 900 Eos # (Auto) 100 Baso # (Auto) Not Reportable 100 Total Counted 100 Seg Neutrophils % 81.0 H Band Neutrophils % 6.0 Lymphocytes % (Manual) 8.0 L Monocytes % (Manual) 5.0 Neutrophils # (Manual) 60345 H Differential Comment Normal morphology RBC Morphology Not Reportable Assessment & Plan Time Spent With Patient Total time spent is greater than 50% in coordination of care (as documented) at patient's floor/unit and/or counseling patient: Overall doing extremely well. Blood pressure is still slightly low but other vital signs are stable and she has no symptomatic problems. Clinically doing extremely well. At this point in will continue routine care. Post instructions discussed. Questions answered. Possible discharge tomorrow. We will see how she feels. 15-24 minutes
--- NOTE | 2018-09-20 09:19 | P.PNOB_ITS ---
Subjective - OB Patient comments: pain well controlled baby status: nursing well feeding status: exclusively breast feeding Narrative: Overall doing well. Not dizzy. Up ambulating. No dizziness no lightheadedness. No shortness of breath. No chest pain. Bleeding is minimal. Date Patient Seen: 09/20/18 Time Patient Seen: 09:17 Exam Vital Signs (past 8 hours): Oxygen Delivery Method Room Air Narrative Exam Narrative: Alert female smiling interactive in no acute distress. Mucous membranes moist. Lungs are clear. Heart regular rate and rhythm. Abdomen is soft positive bowel sounds UE wrist is firm nontender incision is clean and dry. Extremities without cyanosis clubbing no edema no calf tenderness Objective Labs Result Diagrams: 09/20/18 07:03 Labs: Laboratory Results - last 24 hr 09/19/18 09/19/18 09/20/18 10:15 19:35 07:03 WBC 18.3 H 16.7 H RBC 3.83 L 3.48 L Hgb 11.6 L 10.4 L 10.6 L Hct 35.2 L 31.4 L 32.1 L MCV 92.1 92.3 MCH 30.4 30.5 MCHC 33.0 33.1 RDW 14.1 14.2 Plt Count 185 182 Neut % (Auto) Not Reportable 85.9 H Lymph % (Auto) Not Reportable 7.1 L [place] % (Auto) Not Reportable 5.5 Eos % (Auto) Not Reportable 0.8 L Baso % (Auto) Not Reportable 0.7 Neut # (Auto) 14654 H Lymph # (Auto) Not Reportable 1200 [place] # (Auto) Not Reportable 900 Eos # (Auto) 100 Baso # (Auto) Not Reportable 100 Total Counted 100 Seg Neutrophils % 81.0 H Band Neutrophils % 6.0 Lymphocytes % (Manual) 8.0 L Monocytes % (Manual) 5.0 Neutrophils # (Manual) 81468 H Differential Comment Normal morphology RBC Morphology Not Reportable Assessment & Plan Time Spent With Patient Total time spent is greater than 50% in coordination of care (as documented) at patient's floor/unit and/or counseling patient: Overall doing extremely well. Blood pressure is still slightly low but other vital signs are stable and she has no symptomatic problems. Clinically doing extremely well. At this point in will continue routine care. Post i nstructions discussed. Questions answered. Possible discharge tomorrow. We will see how she feels. 15-24 minutes
[2018-09-20] MEDS: SERTRALINE 50 MG TABLET PO (14:42)
[2018-09-21] MEDS: IBUPROFEN 600 MG TABLET PO ×2 (03:24→09:37)
[2018-09-21] MEDS: OXYCODONE/ACETAMINOPHEN 5/325 TABLET 2 TAB PO ×3 (03:25→14:33)
[2018-09-21] MEDS: DOCUSATE 250 MG CAPSULE PO (09:37)
[2018-09-21] MEDS: PRENATAL VIT,CALC/IRON/FOLIC 1 TABLET 1 TAB PO (09:38)
[2018-09-21] MEDS: SERTRALINE 50 MG TABLET PO (09:40)
--- NOTE | 2018-09-21 10:58 | P.DS_ITS ---
History of Present Illness Date Patient Seen: 09/21/18 Time Patient Seen: 10:54 Chief complaint: Labor/delivery Narrative: See H&P Discharge Providers Date of admission: 09/18/18 01:37 Discharge Date: 09/21/18 Primary care physician: Rabia Perales MD Consults: 09/19/18 06:20 Consult to Learning Support Teacher Routine Comment: Discharge provider: Willei Luke MD Summary Discharge Diagnosis: Term Failed labor section Hospital Course: See H&P for pre-admission discussion, admitted for labor after prolonged course and failure to progress brought to OR for section. See labor and operative notes. Since return from recovery patient has done well pain adequately managed has been nursing infant some problems initially but improved with frenulectomy, mom notes still colostrum at this point. Has been up and around feeling well no other concerns. Has been stable, there was a fair amount of blood loss during the procedure but has been stable since, patient and family at anxious for discharge. Status at Discharge Cognitive/behavioral status at discharge: oriented Functional status at discharge: independent ambulation Overall status at discharge: patient is back to baseline Time Spent with Patient Greater than 30 minutes Exam Vital Signs (past 8 hours): Oxygen Delivery Method Room Air Narrative Exam Narrative: Healthy appearing acute distress lying in bed HEENT unremarkable neck is benign chest is clear heart has a regular rate and rhythm without murmur abdomen is soft fundus firm below the umbilicus wound is clear dressing clean. Extremities trace edema normal DTRs neurologically otherwise benign. Objective Labs Result Diagrams: 09/20/18 07:03 Discharge Plan Discharge Plan Patient Disposition: Home Discharge Med Rec/Prescriptions Prescriptions: New oxycodone-acetaminophen 5-325 mg Tablet 1 tab PO Q4HR PRN (Reason: Pain, Moderate (4-6)) Qty: 30 RF: 0 Continued sertraline 50 MG tablet 50 mg PO QDAY Qty: 0 RF: 0 albuterol sulfate [Proventil HFA] 90 MCG/PUFF HFA aerosol inhaler 1 puff INH PRN PRN (Reason: Shortness Of Breath Or Wheezing) Qty: 0 RF: 0 loratadine 10 mg Capsule 10 mg PO DAILY RF: 0 Follow up/Referrals: Rabia Perales MD [Primary Care Provider] - 1 Day (as already sched) Provider Discharge Instructions Diet: Diet as Tolerated Activity: as vivek Skin/Wound/Dressing Care Report to your healthcare provider any signs of infection, such as:: chills, fever, night sweats, increased pain, unusual drainage and unusual redness Dressing: per nursing Discharge Data Primary Care Provider: Rabia Perales Attending Provider: Rabia Perales Admit Date/Time: 09/18/18 01:37
[2018-09-21 12:10] VITALS: BP 92/56; PULSE 81; RESP 16; TEMP 35.9
== END 2018-09-21 15:32 | disposition home or self-care (01) | DRG 787 ==
PROVIDERS: Family Medicine; Admitting Provider Family Medicine; PCP Family Medicine; Visit Provider Family Medicine
PROC: 10D00Z1 Extraction of Products of Conception, Low, Open Approach (ICD-10-PCS; CPT 59514; principal; 2018-09-19 03:45)
DX: O42.12 Full-term premature rupture of membranes, onset of labor more than 24 hours following rupture (principal); O75.2 Pyrexia during labor, not elsewhere classified; Z3A.38 38 weeks gestation of pregnancy; Z37.0 Single live birth; O62.1 Secondary uterine inertia
CPT/HCPCS: 01967; 01968; 36415; 59050; 59514; 85014; 85018; 85025; 86850; 86900; 86901; G0379; J0131; J1170; J1885; J2210; J2274; J2405; J2590; J2704; J2765; J3010; J7121; S0191

== ENCOUNTER 2018-10-30 14:30 | Outpatient (RCR) | payer OTHER, SELFPAY ==
--- NOTE | 2018-10-09 15:31 | PT.OIE ---
Current Diagnoses Encounter for routine follow-up (10/07/18) Provider Visit Care Team Role Provider Type Rabia Perales MD Attending Provider Physician Primary Care Provider Specialty: Family Practice Address: [address] [place] [address], [facility] Email: Physical Therapy Initial Evaluation PT-OP-A Visit Information Start: 10/08/18 09:58 Freq: Status: Active Protocol: Document 10/07/18 10:30 [facility] (Rec: 10/09/18 14:29 [facility] [email or web address]) Out-Patient Physical Therapy Visit Information Visit Information Visit Type Initial Evaluation Visit Note 33 year old female s/p on 09/19/18. She is wanting to make sure her pelvis is in alignemnt following and that she is doing all that she can to protect per abdominal wall . She notes weakness in the abdominal wall and swelling over the pubic bone. Has questions requarding her incision fully healing and would like scar tissue massage techniques Visit Start Time 10:30 Visit Stop Time 11:15 Total Visit Minutes 45 Visit Number 1 Evaluation Information Evaluation Date 10/07/18 PT-OP-B Current Condition Start: 10/08/18 09:58 Freq: Status: Active Protocol: Document 10/07/18 10:30 [facility] (Rec: 10/09/18 14:29 [facility] [email or web address]) Current Condition History of Current Condition Onset Date 09/19/18 Current Complaints weakness, reduced core strength History of Current Condition 3 3year old female s/p on 09/19/18. She is wanting to make sure her pelvis is in alignment following and that she is doing all that she can to protect per abdominal wall . She notes weakness in the abdominal wall and swelling over the pubic bone. She has questions reqarding her incision fully healing and would like scar tissue massage techniques. Sindhu did labor for over 24 hours with back labor and she pushed for 2 hours prior to switching to delivery. PT-OP-F Manual Assessment Start: 10/08/18 09:58 Freq: Status: Active Protocol: Document 10/07/18 10:30 [facility] (Rec: 10/09/18 14:29 [facility] [email or web address]) Manual Assessments Soft Tissue Assessment Soft Tissue Mobility Assessment incision not fully healed on the left side of the scar 1 finger width diastasis distal to the umbilicus tightness of the lumbar paraspinals Joint Mobility Assessment Joint Mobility Assessment + ASLR test B for Si instability PT-OP-J Posture/Palpation/Skin Start: 10/08/18 09:58 Freq: Status: Active Protocol: Document 10/07/18 10:30 [facility] (Rec: 10/09/18 14:29 [facility] [email or web address]) Posture Evaluation Position Standing Evaluation View Posterior Pelvis Posture Anteriorly Tilted Skin Assessment Incisional Assessment Incision Appearance/Comments redness and puckering over the left side of the scar, pt to check this out with her MD today since she has a well child check already scheduled PT-OP-M Strength Start: 10/08/18 09:58 Freq: Status: Active Protocol: Document 10/07/18 10:30 [facility] (Rec: 10/09/18 14:29 [facility] [email or web address]) Trunk Strength Trunk Manual Muscle Testing Core Stabilization Stretch weakness of the transverse abdominals PT-OP-Q Treatments Start: 10/08/18 09:58 Freq: Status: Active Protocol: Document 10/07/18 10:30 [facility] (Rec: 10/08/18 10:00 [facility] [email or web address]) Therapeutic Exercises Other Exercises 4 Other Exercise Name pelvic floor facilitation Reps/Minutes 10 reps working up to 10 second hold time 3 Other Exercise Name supine TA facilitation with marches 2 Other Exercise Name cat cow Reps/Minutes x 10 reps 1 Other Exercise Name quadruped TA facilitation with breathing Reps/Minutes x 10 reps pt to work up to 10 reps of 1o second hold time PT-OP-T Assessment and Plan Start: 10/08/18 09:58 Freq: Status: Active Protocol: Document 10/07/18 10:30 [facility] (Rec: 10/09/18 14:29 [facility] [email or web address]) Physical Therapy Assessment Rehab Potential Rehabilitation Potential Excellent Evaluation Complexity Number of Personal Factors/Comorbidities 0 Number of Body Systems Impaired 1-2 Clinical Presentation at Evaluation Stable Impairments Impairments Activity Tolerance Pain Soft Tissue Mobility Strength Other Impairments stretch weakness of the transverse abdominal musculature Goals Four Impairment increased lumbar lordosis and lumbar paraspinal tightness Mental Health Specialist Goal (LTG) Reduce tightness in the lumbar spine with stretches and manual techniques to improve length of the paraspinals and reduce lumbar lordosis. LTG Duration 8 weeks Three Impairment Scar tissue tightness over the scar Long-Term Goal (LTG) Once the scar is fully healed Sindhu is educated on scar tissue release and has improved mobility over the scar tissue LTG Duration 8 weeks Two Impairment SI instability Short Term Goal (STG) Sindhu is educated on proper body mechanics to avoid undo stress to the SI joint and prevent injury STG Duration 4 weeks One Impairment stretch weakness of the inner core musculature Short Term Goal (STG) Sindhu is able to facilitate her pelvic floor and transverse abdominals in hooklying and hold for 10 seconds STG Duration 4 weeks Mental Health Specialist Goal (LTG) Sindhu is able to maintain a transverse abdominal contraction with marches and heel slides in hooklying Assessment Summary Assessment Sindhu presents to physical therapy today at 3 1/2 weeks s /p delivery of her first child. She is seeking care to make sure she is doing things right physically to avoid injury. She reports feeling unstable in her core with walking greater than 15 min. She also notes the left side of her scar is coke still cleaner and red. She has had some drainage from the scar and has been using neosporin on it. Examination today included assessing pelvic alignment and checking for diastasis. The SI joint does unlock with active straight leg raise but Sindhu is in good alignment today. She does have a small diastasis distal to the umbilicus which is 1 finger width. She has stretch weakness of her transverse abdominal muscles but is able to facilitate a contraction. There is also some tightness in her lumbar spine paraspinal musculature and she would benefit from stretches for this region. Treatment today included Transverse abdominal and pelvic floor recruitment, body mechanics training for lifting the car seat and carrying her baby, education on avoiding undo strain to the abdominal wall, and gentle stretching for the lumbar spine. We will wait on any scar tissue mobilization until her incision is fully healed. Physical Therapy Plan Frequency and Duration Frequency of Treatment 1x/Week Duration of Treatment 8 weeks Plan of Care Start Date 10/07/18 Plan of Care End Date 12/02/18 Therapeutic Interventions Therapeutic Interventions Home Exercise Program Manual Therapy Patient/Caregiver Education Self-Care/Home Management Soft Tissue Mobilization Taping Therapeutic Exercises
--- NOTE | 2018-10-30 15:44 | PT.OTN ---
Current Diagnoses Encounter for routine follow-up (10/30/18) Physical Therapy Treatment Note PT-OP-A Visit Information Start: 10/08/18 09:58 Freq: Status: Active Protocol: Document 10/30/18 15:31 [facility] (Rec: 10/30/18 15:44 [facility] [email or web address]) Out-Patient Physical Therapy Visit Information Visit Information Visit Type Treatment Note Visit Start Time 14:32 Visit Stop Time 15:10 Total Visit Minutes 38 Visit Number 2 PT-OP-B Current Condition Start: 10/08/18 09:58 Freq: Status: Active Protocol: Document 10/07/18 10:30 [facility] (Rec: 10/09/18 14:29 [facility] [email or web address]) Current Condition History of Current Condition Onset Date 09/19/18 Current Complaints weakness, reduced core strength History of Current Condition [age]year old female s/p on 09/19/18. She is wanting to make sure her pelvis is in alignment following and that she is doing all that she can to protect per abdominal wall . She notes weakness in the abdominal wall and swelling over the pubic bone. She has questions requarding her incision fully healing and would like scar tissue massage techniques. Sindhu did labor for over 24 hours with back labor and she pushed for 2 hours prior to switching to delivery. PT-OP-C Subjective Start: 10/08/18 09:58 Freq: Status: Active Protocol: Document 10/30/18 15:31 [facility] (Rec: 10/30/18 15:44 [facility] [email or web address]) OP-PT Subjective Patient Comments Patient Comments Sindhu reports she is doing well, her scar is much more healed and she is not feeling the pain over it now. She is at her 6 week terence now. She has questions regarding starting her abdominal program PT-OP-F Manual Assessment Start: 10/08/18 09:58 Freq: Status: Active Protocol: Document 10/07/18 10:30 [facility] (Rec: 10/09/18 14:29 [facility] [email or web address]) Manual Assessments Soft Tissue Assessment Soft Tissue Mobility Assessment incision not fully healed on the left side of the scar 1 finger width diastasis distal to the umbilicus tightness of the lumbar paraspinals Joint Mobility Assessment Joint Mobility Assessment + ASLR test B for Si instability PT-OP-J Posture/Palpation/Skin Start: 10/08/18 09:58 Freq: Status: Active Protocol: Document 10/07/18 10:30 [facility] (Rec: 10/09/18 14:29 [facility] [email or web address]) Posture Evaluation Position Standing Evaluation View Posterior Pelvis Posture Anteriorly Tilted Skin Assessment Incisional Assessment Incision Appearance/Comments redness and puckering over the left side of the scar, pt to check this out with her MD today since she has a well child check already scheduled PT-OP-M Strength Start: 10/08/18 09:58 Freq: Status: Active Protocol: Document 10/07/18 10:30 [facility] (Rec: 10/09/18 14:29 [facility] [email or web address]) Trunk Strength Trunk Manual Muscle Testing Core Stabilization Stretch weakness of the transverse abdominals PT-OP-Q Treatments Start: 10/08/18 09:58 Freq: Status: Active Protocol: Document 10/30/18 15:31 [facility] (Rec: 10/30/18 15:44 [facility] [email or web address]) Therapeutic Exercises Standing Exercises 2 Standing Exercise Name standing down dog stretch and calf stretch 1 Standing Exercise Name standing squats Other Exercises 7 Other Exercise Name quadraped sidebends to open up the left side of the spine 6 Other Exercise Name sarah pose 5 Other Exercise Name quadraped TA with opp arm and opp leg lift 4 Other Exercise Name pelvic floor facilitation Reps/Minutes 10 reps working up to 10 second hold time 3 Other Exercise Name supine TA facilitation with marches Comments added level 2 2 Other Exercise Name cat cow Reps/Minutes x 10 reps 1 Other Exercise Name quadraped TA facilitation with breathing Reps/Minutes x 10 reps pt to work up to 10 reps of 1o second hold time PT-OP-T Assessment and Plan Start: 10/08/18 09:58 Freq: Status: Active Protocol: Document 10/30/18 15:31 [facility] (Rec: 10/30/18 15:44 [facility] [email or web address]) Physical Therapy Assessment Assessment Summary Assessment Sindhu presents today at 6 weeks . Her scar is healing well. She does have some low back discomfort from being in different positions while . She is not experiencing any urinary leakage. With assessment today there is no diastasis present and she is able to properly engage her lower abdominal wall and pelvic floor. I did begin progressing her lower abdominal muscles and she was able to do a gentle crunch without any abdominal bulging. There is no longer swelling over the pubic bone region. SI is aligned. She has some tightness in her lower legs with a standing squat. She tends to carry her baby girl on her left hip and is tighter on the left side of her spine as comparted to the right. We started stretches to open up the left side. At this time I told her she is able to start longer walking and hiking listening to her body and stopping if she has pain. She tolerated the exercises well today. Continue PT if needed for exercise progression Physical Therapy Plan Frequency and Duration Frequency of Treatment 1x/Week Duration of Treatment 8 weeks Plan of Care Start Date 10/07/18 Plan of Care End Date 12/02/18 Therapeutic Interventions Therapeutic Interventions Home Exercise Program Manual Therapy Patient/Caregiver Education Self-Care/Home Management Soft Tissue Mobilization Taping Therapeutic Exercises Next Visit Focus/Plan Next Note Type Treatment Note Next Visit Plan Review exercise program and progress as tolerated
--- NOTE | 2019-07-02 14:26 | PT.OPDS ---
Current Diagnoses Encounter for routine follow-up (10/30/18) Visit Care Team Role Provider Type Rabia Perales MD Attending Provider Physician Primary Care Provider Specialty: Family Practice Address: [address] [place] [address], [address], [place], [place], [facility] Email: [email or web address] Visit Number Visit Number 2 Discharge Summary PT-OP-B Current Condition Start: 10/08/18 09:58 Freq: Status: Active Protocol: Document 10/07/18 10:30 [facility] (Rec: 10/09/18 14:29 [facility] [email or web address]) Current Condition History of Current Condition Onset Date 09/19/18 Current Complaints weakness, reduced core strength History of Current Condition [age]year old female s/p on 09/19/18. She is wanting to make sure her pelvis is in alignment following and that she is doing all that she can to protect per abdominal wall . She notes weakness in the abdominal wall and swelling over the pubic bone. She has questions requarding her incision fully healing and would like scar tissue massage techniques. Sindhu did labor for over 24 hours with back labor and she pushed for 2 hours prior to switching to delivery. PT-OP-C Subjective Start: 10/08/18 09:58 Freq: Status: Active Protocol: Document 10/30/18 15:31 AM[facility] (Rec: 10/30/18 15:44 [facility] [email or web address]) OP-PT Subjective Patient Comments Patient Comments Sindhu reports she is doing well, her scar is much more healed and she is not feeling the pain over it now. She is at her 6 week terence now. She has questions regarding starting her abdominal program PT-OP-F Manual Assessment Start: 10/08/18 09:58 Freq: Status: Active Protocol: Document 10/07/18 10:30 [facility] (Rec: 10/09/18 14:29 [facility] [email or web address]) Manual Assessments Soft Tissue Assessment Soft Tissue Mobility Assessment incision not fully healed on the left side of the scar 1 finger width diastasis distal to the umbilicus tightness of the lumbar paraspinals Joint Mobility Assessment Joint Mobility Assessment + ASLR test B for Si instability PT-OP-J Posture/Palpation/Skin Start: 10/08/18 09:58 Freq: Status: Active Protocol: Document 10/07/18 10:30 [facility] (Rec: 10/09/18 14:29 [facility] [email or web address]) Posture Evaluation Position Standing Evaluation View Posterior Pelvis Posture Anteriorly Tilted Skin Assessment Incisional Assessment Incision Appearance/Comments redness and puckering over the left side of the scar, pt to check this out with her MD today since she has a well child check already scheduled PT-OP-M Strength Start: 10/08/18 09:58 Freq: Status: Active Protocol: Document 10/07/18 10:30 [facility] (Rec: 10/09/18 14:29 [facility] [email or web address]) Trunk Strength Trunk Manual Muscle Testing Core Stabilization Stretch weakness of the transverse abdominals PT-OP-T Assessment and Plan Start: 10/08/18 09:58 Freq: Status: Active Protocol: Document 07/02/19 14:25 [facility] (Rec: 07/02/19 14:26 [facility] [email or web address]) Physical Therapy Plan Discharge Physical Therapy Discharge Reasons No Longer Attending PT Discharge Comments Sindhu was only seen x 2 visits and was doing well with her home program. DC PT at this time
== END 2018-10-31 12:24 ==
LOC: PHYS 14:30
PROVIDERS: PCP Family Medicine; Visit Provider Family Medicine
DX: Z39.2 Encounter for routine postpartum follow-up (principal)
CPT/HCPCS: 97110; 97161; 97535

== ENCOUNTER → 2020-09-15 12:17 | Outpatient (CLI) | payer OTHER, SELFPAY ==
[2020-09-15] MEDS: COVID-19 VACC #1, MRNA(MOD) 100 MCG/0.5 ML VIAL IM (12:36)
== END ==
PROVIDERS: PCP Family Medicine; Visit Provider Internal Medicine
DX: Z23 Encounter for immunization (principal)
CPT/HCPCS: 0011A; 91301

== ENCOUNTER → 2020-10-13 10:41 | Outpatient (CLI) | payer OTHER, SELFPAY ==
[2020-10-13] MEDS: COVID-19 VACC #2, MRNA(MOD) 100 MCG/0.5 ML VIAL IM (10:44)
== END ==
PROVIDERS: PCP Family Medicine; Visit Provider Internal Medicine
DX: Z23 Encounter for immunization (principal)
CPT/HCPCS: 0012A; 91301

== ENCOUNTER 2021-08-18 02:01 | Emergency (ER) | payer OTHER, SELFPAY ==
[2021-08-18 02:18] VITALS: BP 104/66; PULSE 86; RESP 18; TEMP 36.6; O2SAT 98
--- NOTE | 2021-08-18 04:16 | ED.WOUNDLAC ---
HPI - Wound/Laceration General Chief Complaint: Wound/Laceration Stated Complaint: SLICED FINGER RIGHT HAND Time Seen by Provider: 08/18/21 02:05 Source: patient Mode of arrival: Ambulatory History of Present Illness HPI narrative: 36-year-old woman with history of depression mild intermittent asthma who was working this evening and cut her right index finger on the edge of the sink. She has shallow laceration to the palmar surface of the index finger 2 cm in length. Does not involve muscle and she is neurovascularly intact. She is right-handed. This is an L and I injury Related Data Home Medications Medication Instructions Recorded Confirmed sertraline 50 mg tablet 50 mg PO QDAY #0 01/05/12 09/18/18 albuterol sulfate 90 mcg/actuation 1 puff INH PRN PRN #0 11/20/16 09/18/18 aerosol inhaler (Proventil HFA) loratadine 10 mg capsule 10 mg PO DAILY 09/18/18 09/18/18 Previous Rx's Medication Instructions Recorded oxycodone-acetaminophen 5 mg-325 1 tab PO Q4HR PRN #30 tab 09/21/18 mg tablet Allergies Allergy/AdvReac Type Severity Reaction Status Date / Time amoxicillin [AMOXICILLIN] Allergy Unknown Hives Verified 09/18/18 03:13 Penicillins [PENICILLINS] Allergy Unknown Hives Verified 09/18/18 03:13 azithromycin Allergy Hives Verified 09/18/18 03:13 clindamycin Allergy Hives Verified 09/18/18 03:14 Sulfa (Sulfonamide Allergy Hives Verified 09/18/18 03:13 Antibiotics) Review of Systems Review of Systems Narrative: Pertinent positive and negative findings as per HPI Remainder of review of systems is otherwise unremarkable for Constitutional: Fevers, chills, weakness ENT: No sore throat, neck pain, ear pain CV: Chest pain, palpitations, Respiratory: Cough, wheeze, dyspnea GI: Nausea, vomiting, diarrhea, Patient History Social History Smoking Status: Never smoker Smoking Status: Never smoker Substance Use Type: does not use Exam Initial Vital Signs Initial Vital Signs: Vital Signs Temperature 98 F 08/18/21 02:18 Pulse Rate 86 08/18/21 02:18 Respiratory Rate 18 08/18/21 02:18 Blood Pressure 104/66 08/18/21 02:18 Pulse Oximetry 98 08/18/21 02:18 General: Alert appropriate in no acute distress Respiratory: Able to speak in full sentences, no obvious respiratory distress Skin: No obvious rashes, warm and dry Neurologic: Grossly intact no obvious asymmetries or abnormalities Psych: appropriate insight and affect, cooperative Extremity: 2 cm laceration to the dorsal surface distal index finger. Neurovascularly intact bleeding is controlled. Procedures Laceration Repair Right index finger: Time of procedure: 04:24 Site: hand Side (If applicable): right Size (cm): 2 Description: linear Depth: simple, single layer Local Anesthetic: lidocaine 2% Amount of anesthesia used (mL): 2 Pre-repair: wound explored and deep structures intact Size (cm): 4-0 Number of sutures: 3 Technique: simple, interrupted Course Vital Signs Vital signs: Vital Signs - 8 hr 08/18/21 02:18 Temperature 98 F Pulse Rate 86 Respiratory Rate 18 Blood Pressure 104/66 Pulse Oximetry 98 MDM - Wound/Laceration MDM Narrative Medical decision making narrative: 36-year-old woman with finger laceration. Sutured with 3 simple interrupted sutures. Will need them removed in a week. Low risk for infection antibiotics are not indicated at this time. When over care of lacerations and signs and symptoms of infection. She is safe for home discharge Discharge Plan Departure Patient Disposition: Home Clinical Impression: Laceration Instructions: DI for Laceration Repair Activity Restrictions/Additional Instructions: I am sorry you needed to come in tonight. The laceration came together nicely. The sutures need to come out on or about August 25. While there in, keep the area clean and dry. You want to keep the sutures covered so that they are continually touching objects. If you notice increasing redness, pain, drainage, you need to be re-evaluated as this is not an indication of normal healing. I hope you feel better. Prescriptions: No Action sertraline 50 MG tablet 50 mg PO QDAY Qty: 0 0RF albuterol sulfate [Proventil HFA] 90 MCG/PUFF HFA aerosol inhaler 1 puff INH PRN PRN (Reason: Shortness Of Breath Or Wheezing) Qty: 0 0RF loratadine 10 mg Capsule 10 mg PO DAILY 0RF oxycodone-acetaminophen 5-325 mg Tablet 1 tab PO Q4HR PRN (Reason: Pain, Moderate (4-6)) Qty: 30 0RF Referrals: Rabia Perales MD [Primary Care Provider] -
[2021-08-18] MEDS: LIDOCAINE 2% INJ MDV 1 ML SUBCUT (04:29)
[2021-08-18] MEDS: TET,DIPH,PERTUSS(ACELL),VAC/PF 0.5 ML SYRINGE IM (04:29)
[2021-08-18] MEDS: BACITRACIN OINT 0.9 GM PCKT 1 APPLIC TOP (04:31)
[2021-08-18 05:05] VITALS: BP 112/60; PULSE 64; RESP 18; O2SAT 99
== END 2021-08-18 05:06 | disposition home or self-care (01) ==
PROVIDERS: Emergency Provider Emergency Medicine; PCP Family Medicine
DX: S61.210A Laceration without foreign body of right index finger without damage to nail, initial encounter (principal); Z23 Encounter for immunization; Z88.1 Allergy status to other antibiotic agents; W45.8XXA Other foreign body or object entering through skin, initial encounter; Y99.0 Civilian activity done for income or pay
CPT/HCPCS: 12001; 90471; 99282; 99284; 90715

== ENCOUNTER 2021-08-25 14:40 | Emergency (ER) | payer OTHER, SELFPAY ==
[2021-08-25 14:49] VITALS: BP 130/77; PULSE 75; RESP 18; TEMP 36.3; O2SAT 98; BMI 21.9
--- NOTE | 2021-08-25 14:51 | ED.GENADULT ---
HPI - General Adult General Chief complaint: Recheck/Abnormal Lab/Rx Stated complaint: needs stitches removed Time Seen by Provider: 08/25/21 14:51 History of Present Illness HPI narrative: Patient here for evaluation of possible removal 3 stitches from her right index finger. Was seen here 7 days ago. Was instructed to come back here today for evaluation. However evaluation of the middle stitch requiring more time to heal. Denies any drainage from the wound. No fever. Related Data Home Medications Medication Instructions Recorded Confirmed sertraline 50 mg tablet 50 mg PO QDAY #0 01/05/12 09/18/18 albuterol sulfate 90 mcg/actuation 1 puff INH PRN PRN #0 11/20/16 09/18/18 aerosol inhaler (Proventil HFA) loratadine 10 mg capsule 10 mg PO DAILY 09/18/18 09/18/18 Previous Rx's Medication Instructions Recorded oxycodone-acetaminophen 5 mg-325 1 tab PO Q4HR PRN #30 tab 09/21/18 mg tablet Allergies Allergy/AdvReac Type Severity Reaction Status Date / Time amoxicillin [AMOXICILLIN] Allergy Unknown Hives Verified 08/25/21 14:49 Penicillins [PENICILLINS] Allergy Unknown Hives Verified 08/25/21 14:49 azithromycin Allergy Hives Verified 08/25/21 14:49 clindamycin Allergy Hives Verified 08/25/21 14:49 Sulfa (Sulfonamide Allergy Hives Verified 08/25/21 14:49 Antibiotics) Review of Systems Review of Systems Narrative: GENERAL: Denies chills, fatigue, malaise, fever, sweats. HEENT: Denies sinus pain, ear pain, sore throat RESPIRATORY: Denies dyspnea, cough CARDIOVASCULAR: Denies chest pain, palpitations GASTROINTESTINAL: Denies nausea, vomiting, abdominal pain : Denies dysuria, frequency, hematuria MUSCULOSKELETAL: denies muscle or bony pain SKIN: Denies rash, skin lesions NEUROLOGIC: Denies weakness, numbness ROS Unobtainable: All systems reviewed & are unremarkable except as noted in HPI and below Patient History Social History Smoking Status: Never smoker Smoking Status: Never smoker Substance Use Type: does not use Exam Narrative Exam Narrative: GENERAL: in no distress, not toxic not dyspneic HEAD: Normocephalic. EXTREMITIES: No gross deformities. Examination of right index finger. There are 3 stitches intact. Wound is clean and dry. However the middle suture has not completely healed with approximation as the and stitches. The wound is near the PIP joint on the volar side. Finger is otherwise warm soft and pink. No necrotic tissue. No drainage. No red streaking. nontender. NEURO: AOx4. SKIN: Warm and dry PSYCH: Not anxious, is cooperative Initial Vital Signs Initial Vital Signs: Vital Signs Temperature 97.4 F L 08/25/21 14:49 Pulse Rate 75 08/25/21 14:49 Respiratory Rate 18 08/25/21 14:49 Blood Pressure 130/77 08/25/21 14:49 Pulse Oximetry 98 08/25/21 14:49 Course Course Course Narrative: No new issues during course of stay Reevaluation(s) Reevaluation #1: Patient agrees for re-evaluation in 5 days for better healing of the skin Vital Signs Vital signs: Vital Signs - 8 hr 08/25/21 14:49 Temperature 97.4 F L Pulse Rate 75 Respiratory Rate 18 Blood Pressure 130/77 Pulse Oximetry 98 Medical Decision Making Differential Diagnosis Differential Diagnosis: Suture evaluation MDM Narrative Medical decision making narrative: Appropriate for discharge home. Patient will return in 5 days for re-evaluation of the suture wound. At that time likely amenable for removal of the stitches. Discharge Plan Departure Patient Disposition: Home Clinical Impression: Encounter for assessment of wound Instructions: DI for Laceration Repair -- Complex Suture Activity Restrictions/Additional Instructions: Continue the good wound care your doing for you finger. Return here in 5 days for re-evaluation for removal of 3 stitches. Return if worse or if any questions or concerns Prescriptions: No Action sertraline 50 MG tablet 50 mg PO QDAY Qty: 0 0RF albuterol sulfate [Proventil HFA] 90 MCG/PUFF HFA aerosol inhaler 1 puff INH PRN PRN (Reason: Shortness Of Breath Or Wheezing) Qty: 0 0RF loratadine 10 mg Capsule 10 mg PO DAILY 0RF oxycodone-acetaminophen 5-325 mg Tablet 1 tab PO Q4HR PRN (Reason: Pain, Moderate (4-6)) Qty: 30 0RF Referrals: Rabia Perales MD [Primary Care Provider] -
== END 2021-08-25 14:56 | disposition home or self-care (01) ==
PROVIDERS: Emergency Provider Emergency Medicine; PCP Family Medicine
DX: Z48.02 Encounter for removal of sutures (principal); Y99.0 Civilian activity done for income or pay
CPT/HCPCS: 99281

== ENCOUNTER → 2022-12-06 19:02 | Outpatient (CLI) | payer OTHER, SELFPAY | PROVIDERS: PCP Family Medicine; Visit Provider Nurse Practitioner Family | DX: J02.9 Acute pharyngitis, unspecified (principal) | CPT/HCPCS: 87070; 87077; 87147 ==

== ENCOUNTER → 2024-07-20 14:21 | Outpatient (CLI) | payer OTHER, SELFPAY ==
[2024-07-20 15:19] LABS: Influenza A - CEPHEID Flu A NEGATIVE (NEGATIVE); Influenza B - CEPHEID Flu B NEGATIVE (NEGATIVE); Respiratory Syncytial Virus Negative (Negative)
[2024-07-20 15:43] LABS: COVID-19 CEPHEID 4-PLEX PCR Negative (Negative)
== END ==
PROVIDERS: PCP Family Medicine; Visit Provider Physician Assistant Medical
DX: R07.0 Pain in throat (principal)
CPT/HCPCS: 0241U

== ENCOUNTER → 2024-11-13 07:38 | Outpatient (CLI) | payer OTHER, SELFPAY | LOC: LAB 07:38 | PROVIDERS: PCP Family Medicine; Visit Provider Chiropractor | DX: R30.0 Dysuria (principal) | CPT/HCPCS: 87086 ==

== ENCOUNTER → 2025-03-26 15:45 | Outpatient (CLI) | payer OTHER, SELFPAY ==
--- NOTE | 2025-03-26 15:46 | DI.US.S_ITS ---
PROCEDURE: US PELVIC COMPLETE INDICATIONS: METRORRHAGIA TECHNIQUE: Real-time scanning was performed of the pelvic organs, with image documentation. Additional endovaginal scanning was necessary due to incomplete visualization of the adnexal and endometrial structures by transabdominal scanning. COMPARISON: None. FINDINGS: Uterus: Uterus is anteverted and normal in size at 7.6 x 4.6 x 3.7 cm. The myometrium is homogeneous. The endometrium measures 12.3 mm combined thickness. Trace cervical fluid. Simple and complex nabothian cysts are noted. Ovaries: The right ovary measures 4.2 x 2.2 x 1.8 cm, with a calculated ovarian volume of 8.9 cc. The left ovary measures 3.2 x 3.1 x 1.6 cm, with a calculated ovarian volume of 8.4 cc. The ovaries have a normal sonographic appearance. Less than 12 follicles can be seen in each ovary. No adnexal masses are seen. Other: No pathologic free abdominal or pelvic fluid. IMPRESSION: Endometrium is normal in thickness for a premenopausal female measuring 12 mm. Normal appearance of the uterus and ovaries. We strive to produce accurate, complete, and clear reports of imaging services. To assist us in improving patient care, this report was composed using standard report templates and voice recognition software. Therefore, it may contain abnormal punctuation, insertions and/or omissions. Occasional wrong-word or sound-alike substitutions may occur. Though we review the report and make efforts to correct it, we do recommend that the report be read carefully in proper context to recognize any text inaccuracies. Dictated by: Srinivasa Gomez M.D. on 03/27/2025 at 21:06 Approved by: Srinivasa Gomez M.D. on 03/27/2025 at 21:07
== END ==
LOC: US 15:45
PROVIDERS: PCP Family Medicine; Referring Provider Family Medicine; Visit Provider Family Medicine
DX: N92.1 Excessive and frequent menstruation with irregular cycle (principal); Z13.0 Encounter for screening for diseases of the blood and blood-forming organs and certain disorders involving the immune mechanism; E78.2 Mixed hyperlipidemia; F41.9 Anxiety disorder, unspecified; K62.5 Hemorrhage of anus and rectum; D70.9 Neutropenia, unspecified
CPT/HCPCS: 76830; 76856

== ENCOUNTER → 2025-05-13 15:39 | Outpatient (CLI) | payer OTHER, SELFPAY ==
--- NOTE | 2025-05-13 15:40 | DI.MG.S_ITS ---
MM screening mammo BI: 05/13/2025. BI-RADS: 1 CLINICAL: 40-year old female for bilateral screening mammogram. Tyrer-Cuzick lifetime risk of 6.8%. No personal or first-degree family history of breast cancer. The patient is status-post reduction mammoplasty. PRIOR EXAMS: No prior examinations available. MAMMOGRAPHY TECHNIQUE: 2D and 3D (tomosynthesis) digital mammographic views obtained, with additional images as needed for full coverage. Current study was also evaluated with a Computer Aided Detection (CAD) system. DENSITY B. There are scattered areas of fibroglandular density. MAMMOGRAPHY FINDINGS Bilateral: No suspicious mass, asymmetry, microcalcification, or other abnormality seen. IMPRESSION: * No evidence of malignancy. RECOMMENDATIONS Bilateral * Annual screening mammography. OVERALL ASSESSMENT CATEGORY BI-RADS-1: Negative. The [employer] recommends annual screening mammography beginning at age 40 for women with average risk of breast cancer. ELECTRONICALLY SIGNED: Oseas Díaz M.D. on 05/15/2025 at 04:33:33 PM PT Interpreting Station ID: [id number]
== END ==
PROVIDERS: PCP Family Medicine; Referring Provider Family Medicine; Visit Provider Family Medicine
DX: Z12.31 Encounter for screening mammogram for malignant neoplasm of breast (principal)
CPT/HCPCS: 77063; 77067